=== PATIENT | male | born 1970 ===

== ENCOUNTER 2018-03-20 11:42 | Observation (INO) | payer BC, OTHER ==
[2018-03-20 11:51] VITALS: BMI 28.7
[2018-03-20] MEDS ORDERED: Iohexol 240 (50 ml) PO ONE (12:10)
[2018-03-20] MEDS ORDERED: Sodium Chloride 0.9% 1,000 ML IV STA (12:10)
--- NOTE | 2018-03-20 12:13 | ED PDOC ---
HPI: Abdomen Time Seen by Provider: 03/20/18 12:02 Chief Complaint (Nursing): Abdominal Pain Chief Complaint (Provider): abd pain History Per: Patient History/Exam Limitations: no limitations Onset/Duration Of Symptoms: Days () Current Symptoms Are (Timing): Still Present Additional Complaint(s): Abd pain after eating [employer]. RLQ. No nausea, vomit, diarrhea, weakness, headaches, dizziness, chest pain, dyspnea. No back pain, testicular pain. No dysuria. Past Medical History Reviewed: Nursing Documentation, Vital Signs Vital Signs: Last Vital Signs Temp 98.7 F 03/20/18 11:51 Pulse 91 H 03/20/18 11:51 Resp 17 03/20/18 11:51 BP 155/90 H 03/20/18 11:51 Pulse Ox 96 03/20/18 12:14 - Medical History PMH: No Chronic Diseases - Surgical History Surgical History: No Surg Hx - Family History Family History: States: Unknown Family Hx - Social History Alcohol: None Drugs: Denies - Home Medications Home Medications: Ambulatory Orders Medication Instructions Recorded No Known Home Med 03/20/18 - Allergies Allergies/Adverse Reactions: Allergies Allergy/AdvReac Type Severity Reaction Status Date / Time No Known Allergies Allergy Verified 03/20/18 12:06 Review of Systems ROS Statement: Except As Marked, All Systems Reviewed And Found Negative Gastrointestinal: Positive for: Abdominal Pain Physical Exam - Reviewed Nursing Documentation Reviewed: Yes Vital Signs Reviewed: Yes - Physical Exam Appears: Positive for: Non-toxic, No Acute Distress Head Exam: Positive for: ATRAUMATIC, NORMAL INSPECTION, NORMOCEPHALIC Skin: Positive for: Normal Color, Warm, DRY Eye Exam: Positive for: EOMI, Normal appearance, PERRL ENT: Positive for: Normal ENT Inspection Neck: Positive for: Normal, Painless ROM Cardiovascular/Chest: Positive for: Regular Rate, Rhythm Respiratory: Positive for: CNT, Normal Breath Sounds Gastrointestinal/Abdominal: Positive for: Soft, Tenderness (RLQ) Back: Positive for: Normal Inspection. Negative for: L CVA Tenderness, R CVA Tenderness Extremity: Positive for: Normal ROM. Negative for: Tenderness, Pedal Edema Neurologic/Psych: Positive for: Alert, Oriented - Laboratory Results Result Diagrams: 03/20/18 12:28 03/20/18 12:28 Interpretation Of Abn Labs: NO ACUTE - ECG O2 Sat by Pulse Oximetry: 96 Pulse Ox Interpretation: Normal - Progress ED Course And Treament: 1455: Stable. AAOx3. Pain controlled. Dr. Mart to take over care. Fu on ct. Disposition - Clinical Impression Clinical Impression: Abdominal pain - Patient ED Disposition Is Patient to be Admitted: Transfer of Care - Disposition Disposition: Transfer of Care Disposition Time: 14:54 Condition: FAIR Patient Signed Over To: Michael Mart
[2018-03-20] MEDS ORDERED: Iohexol 240 (50 ml) ONE (12:36)
[2018-03-20 12:47] LABS: BASO # 0.1 K/uL (0.0-0.2); BASO % 0.9 % (0.0-2.0); EOS # 0.1 K/uL (0.0-0.7); EOS % 1.1 % (0.0-4.0); HEMOGLOBIN 14.6 g/dL (12.0-18.0); LYMPH # 1.8 K/uL (1.0-4.3); LYMPH % 27.6 % (20.0-40.0); MEAN CELL VOLUME 89.1 fl (80.0-94.0); MEAN CORPUSCULAR HEMOGLOBIN 30.6 pg (27.0-31.0); MEAN CORPUSCULAR HGB CONC 34.3 g/dL (33.0-37.0); MEAN PLATELET VOLUME 9.4 fl (7.2-11.7); MONO # 0.6 K/uL (0.0-0.8); MONO % 8.3 % (0.0-10.0); NEUT # 4.2 K/uL (1.8-7.0); NEUT % 62.1 % (50.0-75.0); NRBC % 0.1 % (0.0-0.0); RBC 4.78 Mil/uL (4.40-5.90); RED CELL DISTRIBUTION WIDTH 12.8 % (11.5-14.5); WHITE BLOOD COUNT 6.7 K/uL (4.8-10.8)
[2018-03-20 13:10] LABS: ALB/GLOB RATIO 1.2 (1.0-2.1); ALBUMIN 4.2 g/dL (3.5-5.0); ALT/SGPT 42 U/L (21-72); AST/SGOT 40 U/L (17-59); BLOOD UREA NITROGEN 12 mg/dl (9-20); CALCIUM 9.5 mg/dL (8.4-10.2); GFR AFRICAN-AMERICAN > 60; GFR NON-AFRICAN AMERICAN > 60
[2018-03-20] MEDS ORDERED: Iohexol 300 100 ML IJ ONE (16:56)
--- NOTE | 2018-03-20 18:05 | ED PDOC ---
- Laboratory Results Result Diagrams: 03/20/18 12:28 03/20/18 12:28 - ECG O2 Sat by Pulse Oximetry: 96 Disposition - Clinical Impression Clinical Impression: Abdominal pain, Appendicitis - POA Present On Arrival: None - Disposition Disposition: Hospitalized as Observation Patient Disposition Time: 18:05 Condition: FAIR
--- NOTE | 2018-03-20 19:18 | CP.PCM.HP ---
History of Present Illness - History of Present Illness History of Present Illness: SURGERY NOTE FOR DR. ARAUZ 47M presents to hospital for abdominal pain. Patient states pain started 4/5 days ago and began in the right lower quadrant and it stays in the RLQ. Patient states pain started after eating fast food. He denies any nausea or vomiting, he denies any change in bowel movements. He states a couple days ago he felt subjective fevers, but not since. He denies chills. Last time he ate was this morning approx 12 hours ago. PMH: denies PSH: denies Social: denies tobacco abuse, admits to social alcohol use, denies illicit drugs Allergies: NKDA Present on Admission - Present on Admission Any Indicators Present on Admission: No Past Patient History - Past Social History Alcohol: None Drugs: Denies - PSYCHIATRIC Hx Substance Use: No - ANESTHESIA Hx Anesthesia: No Meds Allergies/Adverse Reactions: Allergies Allergy/AdvReac Type Severity Reaction Status Date / Time No Known Allergies Allergy Verified 03/20/18 12:06 Physical Exam - Constitutional Appears: Well, Non-toxic, No Acute Distress - Head Exam Head Exam: ATRAUMATIC - Eye Exam Eye Exam: EOMI, PERRL - Respiratory Exam Respiratory Exam: Clear to Auscultation Bilateral, NORMAL BREATHING PATTERN - Cardiovascular Exam Cardiovascular Exam: REGULAR RHYTHM, +S1, +S2 - GI/Abdominal Exam GI & Abdominal Exam: Soft, Tenderness (mild RLQ tenderness). absent: Distended , Firm, Guarding, Rebound, Rigid - Extremities Exam Extremities exam: Negative for: pedal edema, tenderness - Neurological Exam Neurological exam: Alert, Oriented x3 - Psychiatric Exam Psychiatric exam: Normal Affect, Normal Mood - Skin Skin Exam: Dry, Intact, Normal Color, Warm Results - Vital Signs Recent Vital Signs: Last Vital Signs Temp 98.3 F 03/20/18 18:47 Pulse 72 03/20/18 18:47 Resp 19 03/20/18 18:47 BP 130/73 03/20/18 18:47 Pulse Ox 97 03/20/18 18:47 - Labs Result Diagrams: 03/20/18 12:28 03/20/18 12:28 Labs: Laboratory Results - last 24 hr 03/20/18 03/20/18 12:28 12:28 WBC 6.7 RBC 4.78 Hgb 14.6 Hct 42.6 MCV 89.1 MCH 30.6 MCHC 34.3 RDW 12.8 Plt Count 235 MPV 9.4 Neut % (Auto) 62.1 Lymph % (Auto) 27.6 [place] % (Auto) 8.3 Eos % (Auto) 1.1 Baso % (Auto) 0.9 Neut # (Auto) 4.2 Lymph # (Auto) 1.8 [place] # (Auto) 0.6 Eos # (Auto) 0.1 Baso # (Auto) 0.1 Sodium 147 Potassium 4.0 Chloride 103 Carbon Dioxide 27 Anion Gap 21 H BUN 12 Creatinine 1.1 Est GFR ( Amer) > 60 Est GFR (Non-Af Amer) > 60 Random Glucose 102 Calcium 9.5 Total Bilirubin 0.4 AST 40 ALT 42 Alkaline Phosphatase 60 Total Protein 7.7 Albumin 4.2 Globulin 3.5 Albumin/Globulin Ratio 1.2 Assessment & Plan - Assessment and Plan (Free Text) Assessment: 47M with appendicit[address] CT: 10mm appendix with periappendiceal stranding contiguous with cecal tip, no perforation Plan: NPO, IVF Pain control Nausea vomiting Antibiotics AM labs SCD Further recs discuss with Dr. Boris Guillen, PGY2
[2018-03-20 19:27] LABS: INR 1.1 (0.9-1.2); PARTIAL THROMBOPLASTIN TIME 35.8 Seconds (25.6-37.1); PROTHROMBIN TIME 11.8 Seconds (9.8-13.1)
[2018-03-20] MEDS: Sodium Chloride 0.9% 1,000 ML IV SCH (20:08)
[2018-03-20] MEDS: Piperacillin/Tazobact 3.375 GM in Sodium Chloride 0.9% 100 ML IVPB SCH (22:37)
[2018-03-21] MEDS: Sodium Chloride 0.9% 1,000 ML IV SCH ×2 (02:10→04:01)
[2018-03-21] MEDS: Piperacillin/Tazobact 3.375 GM in Sodium Chloride 0.9% 100 ML IVPB SCH ×3 (03:57→21:36)
[2018-03-21 06:27] LABS: BASO # 0.1 K/uL (0.0-0.2); BASO % 1.3 % (0.0-2.0); EOS # 0.2 K/uL (0.0-0.7); EOS % 3.5 % (0.0-4.0); LYMPH # 1.9 K/uL (1.0-4.3); MEAN CELL VOLUME 90.3 fl (80.0-94.0); MEAN CORPUSCULAR HEMOGLOBIN 30.6 pg (27.0-31.0); MEAN CORPUSCULAR HGB CONC 33.9 g/dL (33.0-37.0); MEAN PLATELET VOLUME 9.5 fl (7.2-11.7); MONO # 0.5 K/uL (0.0-0.8); MONO % 8.7 % (0.0-10.0); NEUT # 3.1 K/uL (1.8-7.0); NEUT % 53.5 % (50.0-75.0); NRBC % 0.1 % (0.0-0.0); RBC 4.56 Mil/uL (4.40-5.90); RED CELL DISTRIBUTION WIDTH 12.8 % (11.5-14.5); WHITE BLOOD COUNT 5.8 K/uL (4.8-10.8)
[2018-03-21 06:47] LABS: ALB/GLOB RATIO 1.1 (1.0-2.1); ALBUMIN 3.5 g/dL (3.5-5.0); ALT/SGPT 36 U/L (21-72); AST/SGOT 28 U/L (17-59); BLOOD UREA NITROGEN 11 mg/dl (9-20); CALCIUM 8.6 mg/dL (8.4-10.2); GFR AFRICAN-AMERICAN > 60; GFR NON-AFRICAN AMERICAN > 60
--- NOTE | 2018-03-21 08:24 | CT ---
PROCEDURE: CT Abdomen and Pelvis without intravenous contrast HISTORY: Abdominal pain COMPARISON: None. TECHNIQUE: Multiple contiguous axial images were performed through the abdomen and pelvis with intravenous contrast. Subsequently, sagittal and coronal reformatted images were obtained. Radiation dose: Total exam DLP = 1292 mGy-cm. This CT exam was performed using one or more of the following dose reduction techniques: Automated exposure control, adjustment of the mA and/or kV according to patient size, and/or use of iterative reconstruction technique. FINDINGS: LOWER THORAX: 2 millimeter subpleural nodule within the medial aspect of the right middle lobe. LIVER: Mild hepatomegaly. GALLBLADDER AND BILE DUCTS: Unremarkable. PANCREAS: Unremarkable. No gross lesion or ductal dilatation. SPLEEN: Unremarkable. ADRENALS: Unremarkable. No mass. KIDNEYS AND URETERS: Low-attenuation lesion of the left kidney, too small to adequately characterize. VASCULATURE: Unremarkable. No aortic aneurysm. BOWEL: Unremarkable. No obstruction. No gross mural thickening. APPENDIX: Appendix is dilated measuring up to 10 millimeters, isodense, with mild periappendiceal fat stranding and contiguous inflammation of the cecal tip concerning for acute appendicitis without signs of perforation. Appendix is best seen on axial image 65 of series 6 and coronal image 50. PERITONEUM: Unremarkable. No free fluid. No free air. LYMPH NODES: Unremarkable. No enlarged lymph nodes. BLADDER: Unremarkable. REPRODUCTIVE: Unremarkable. BONES: Posterior disc osteophyte complex at the L5-S1 level. OTHER FINDINGS: None. IMPRESSION: Appendix is dilated measuring up to 10 millimeters, isodense, and with mild periappendiceal fat stranding and contiguous inflammation of the cecal tip suspicious for acute appendicitis without signs of perforation. Additional findings as above. These findings were preliminarily reported at 5:59 p.m. on 03/20/[address] Holden Faulkner from [employer].
[2018-03-21] MEDS ORDERED: Succinylcholine 200 mg/10 ml Inj IV ONE (13:20)
[2018-03-21] MEDS ORDERED: Propofol 10 mg/ml Inj (20 ML) ONE ×2 (13:20→15:08)
[2018-03-21] MEDS ORDERED: Vecuronium 10 mg Inj ONE (13:22)
[2018-03-21] MEDS ORDERED: Lidocaine 4% (Laryng-O-Jet) Kit MM ONE (13:22)
[2018-03-21] MEDS ORDERED: Phenylephrine 10 mg/ml Inj ONE (13:22)
[2018-03-21] MEDS ORDERED: Bupivacaine 0.5% Inj(30mL) ONE (13:28)
[2018-03-21] MEDS ORDERED: Lidocaine 2% w Epi 1:100,000 Inj IJ ONE (13:28)
[2018-03-21] MEDS ORDERED: Lactated Ringer's 1,000 ML IV ONE ×3 (14:00→16:41)
[2018-03-21] MEDS ORDERED: Midazolam 2 MG/2 ML VIAL ONE (14:07)
[2018-03-21] MEDS ORDERED: Dexamethasone 4 mg/1 ml ONE (14:21)
[2018-03-21] MEDS ORDERED: Neostigmine 1:1000 (1 mg/ml) Inj ONE (14:29)
--- NOTE | 2018-03-21 15:29 | PCM.SURG1 ---
Surgeon's Initial Post Op Note - Surgeon's Notes Surgeon: Dr. Escalante Graduate Intern: Dr. Bass PGY2, Dr. [place] PGY1 Type of Anesthesia: General Endo Pre-Operative Diagnosis: Acute appendicitis Operative Findings: acute appendicitis Post-Operative Diagnosis: same Operation Performed: appendix Specimen/Specimens Removed: appendix Estimated Blood Loss: EBL {In ML}: 5 Blood Products Given: N/A Drains Used: No Drains Post-Op Condition: Good Date of Surgery/Procedure: 03/21/18 Time of Surgery/Procedure: 14:30
[2018-03-21] MEDS ORDERED: HYDROmorphone 0.5 mg/0.5 ml ISec IVP PRN (15:33)
[2018-03-22] MEDS: Lactated Ringer's 1,000 ML IV SCH ×2 (02:05→03:33)
[2018-03-22] MEDS: Piperacillin/Tazobact 3.375 GM in Sodium Chloride 0.9% 100 ML IVPB SCH (03:32)
[2018-03-22] MEDS ORDERED: Oxycodone/Acetaminophen 5/325 mg Tab PO PRN (07:42)
[2018-03-22 07:43] VITALS: BP 121/79; PULSE 64; RESP 18; TEMP 97.9; O2SAT 98
--- NOTE | 2018-03-22 07:56 | CP.PCM.DIS ---
Provider - Provider Date of Admission: 03/20/18 19:07 Attending physician: Michael Escalante MD Time Spent in preparation of Discharge (in minutes): 20 Hospital Course - Lab Results Lab Results: Most Recent Lab Values WBC 5.8 K/uL (4.8-10.8) 03/21/18 05:45 RBC 4.56 Mil/uL (4.40-5.90) 03/21/18 05:45 Hgb 14.0 g/dL (12.0-18.0) 03/21/18 05:45 Hct 41.1 % (35.0-51.0) 03/21/18 05:45 MCV 90.3 fl (80.0-94.0) 03/21/18 05:45 MCH 30.6 pg (27.0-31.0) 03/21/18 05:45 MCHC 33.9 g/dL (33.0-37.0) 03/21/18 05:45 RDW 12.8 % (11.5-14.5) 03/21/18 05:45 Plt Count 224 K/uL (130-400) 03/21/18 05:45 MPV 9.5 fl (7.2-11.7) 03/21/18 05:45 Neut % (Auto) 53.5 % (50.0-75.0) 03/21/18 05:45 Lymph % (Auto) 33.0 % (20.0-40.0) 03/21/18 05:45 [place] % (Auto) 8.7 % (0.0-10.0) 03/21/18 05:45 Eos % (Auto) 3.5 % (0.0-4.0) 03/21/18 05:45 Baso % (Auto) 1.3 % (0.0-2.0) 03/21/18 05:45 Neut # (Auto) 3.1 K/uL (1.8-7.0) 03/21/18 05:45 Lymph # (Auto) 1.9 K/uL (1.0-4.3) 03/21/18 05:45 [place] # (Auto) 0.5 K/uL (0.0-0.8) 03/21/18 05:45 Eos # (Auto) 0.2 K/uL (0.0-0.7) 03/21/18 05:45 Baso # (Auto) 0.1 K/uL (0.0-0.2) 03/21/18 05:45 PT 11.8 Seconds (9.8-13.1) 03/20/18 18:55 INR 1.1 (0.9-1.2) 03/20/18 18:55 APTT 35.8 Seconds (25.6-37.1) 03/20/18 18:55 Sodium 145 mmol/l (132-148) 03/21/18 05:45 Potassium 4.0 MMOL/L (3.6-5.0) 03/21/18 05:45 Chloride 105 mmol/L (98-107) 03/21/18 05:45 Carbon Dioxide 25 mmol/L (22-30) 03/21/18 05:45 Anion Gap 19 (10-20) 03/21/18 05:45 BUN 11 mg/dl (9-20) 03/21/18 05:45 Creatinine 1.1 mg/dl (0.8-1.5) 03/21/18 05:45 Est GFR ( Amer) > 60 03/21/18 05:45 Est GFR (Non-Af Amer) > 60 03/21/18 05:45 Random Glucose 107 mg/dL (75-110) 03/21/18 05:45 Calcium 8.6 mg/dL (8.4-10.2) 03/21/18 05:45 Total Bilirubin 0.8 mg/dl (0.2-1.3) 03/21/18 05:45 AST 28 U/L (17-59) 03/21/18 05:45 ALT 36 U/L (21-72) 03/21/18 05:45 Alkaline Phosphatase 57 U/L (38-126) 03/21/18 05:45 Total Protein 6.7 G/DL (6.3-8.2) 03/21/18 05:45 Albumin 3.5 g/dL (3.5-5.0) 03/21/18 05:45 Globulin 3.2 gm/dL (2.2-3.9) 03/21/18 05:45 Albumin/Globulin Ratio 1.1 (1.0-2.1) 03/21/18 05:45 - Hospital Course Hospital Course: 03/20: 47M presents to hospital for abdominal pain. Patient states pain started 4 /5 days ago and began in the right lower quadrant and it stays in the RLQ. Patient states pain started after eating fast food. He denies any nausea or vomiting, he denies any change in bowel movements. He states a couple days ago he felt subjective fevers, but not since. He denies chills. Last time he ate was this morning approx 12 hours ago. 03/21: Patient underwent laparoscopic appendectomy. Tolerated procedure well with no intraoperative complications. 03/22: Patient is ambulating and tolerating diet. Denies fever/chills. Reports he no longer has abdominal pain. Discharge Exam - Head Exam Head Exam: ATRAUMATIC - Eye Exam Eye Exam: EOMI, Normal appearance - Respiratory Exam Respiratory Exam: NORMAL BREATHING PATTERN - Cardiovascular Exam Cardiovascular Exam: +S1, +S2 - GI/Abdominal Exam GI & Abdominal Exam: Soft. absent: Distended, Firm, Guarding, Hernia, Rebound, Rigid, Tenderness - Neurological Exam Neurological exam: Alert, Oriented x3 - Skin Skin Exam: Dry, Intact, Normal Color, Warm Discharge Plan - Follow Up Plan Condition: FAIR Disposition: HOME/ ROUTINE Patient education suggested?: Yes Instructions: Appendicitis, Adult (DC), Appendectomy, Laparoscopic Surgery (DC) , Acute Abdominal Pain (DC), Acute Abdominal Pain (GEN) Additional Instructions: follow up with Dr. Escalante in 7-10 days No heavy lifting OK to shower Do not submerge under water for first two weeks (i.e. bath, swimming pool, beach , etc) Referrals: [facility] [Outside] Michael Escalante MD [Staff Provider] -
--- NOTE | 2018-04-01 08:40 | OP ---
PROCEDURE DATE: 03/21/2018 PREOPERATIVE DIAGNOSIS: Acute appendicitis. POSTOPERATIVE DIAGNOSIS: Acute appendicitis. PROCEDURE: Laparoscopic appendectomy. SURGEON: Michael Escalante MD ACCOUNTS CLERK: TYPE OF ANESTHESIA: General endotracheal. ESTIMATED BLOOD LOSS: 10 mL. IV FLUIDS: 1 L of Ringers lactate. SPECIMEN: Appendix to pathology. COMPLICATIONS: None. DRAINS: None. IMPLANTS: None. DISPOSITION: Stable and extubated to recovery room. CLINICAL INFORMATION: Mr. Malave is a 47-year-old male who has experiencing right lower quadrant epigastric pain, radiating to the lower back accompanied by nausea and vomiting for the last 48 hours. became more severe and he developed also low-grade fever and chest pain he presented to the [facility] Emergency Room. On examination, the patient had rebound and guarding in the right lower quadrant as well as leukocytosis. The CAT scan indicates that the patient had acute appendicitis and based on these findings, the patient was taken to the OR emergently for a laparoscopic appendectomy. INTRAOPERATIVE FINDINGS: The patient had an enlarged inflamed appendix and cloudy fluid in the right pericolic gutter and right pelvic area as well as thickened mesoappendix. DESCRIPTION OF PROCEDURE: The patient was brought to the operating room and placed on the operating room table in supine position. general endotracheal anesthesia. Venodyne boots were placed in both legs and were given. The entire abdomen was prepped and draped in the usual sterile fashion. The infraumbilical area was infiltrated with local anesthetic using 0.5% Marcaine and 1% lidocaine with epinephrine and it was incised in vertical fashion using a #15 blade. The incision was brought down subcutaneous tissue using Bovie electrocautery and linea alba was identified and incised and the peritoneal cavity was accessed. An 0 Vicryl stitch UR-6 needle was placed inside fascia. A [place] trocar was inserted under direct visualization and the obturator was removed. The port was secured through the anchoring 0 Vicryl sutures and then port was connected with CO2 tank, generating pneumoperitoneum with 50 mmHg, the patient's position was changed Trendelenburg with left side down exposing the right lower quadrant. A 10 mm 30-degree laparoscope video camera was inserted and the abdomen was inspected. The appendix was partly concealed by the cecum and appeared to be inflamed and enlarged with thickened mesoappendix and cloudy fluid in the right pericolic gutter and the right pelvic area. No other significant pathologies are identified. Two 5-mm ports were inserted in the lower abdomen, suprapubic and the left lower quadrant area under direct visualization. After infiltrating the skin with a same local anesthetic and incising with 15 blade. Through the 5 mm ports, an endograsper and 5 mm LigaSure were inserted in the appendix was in the blunt and sharp fashion and also partly retrocecal and dissection was rather tedious, but was accomplished without any collateral damage. Upon completing the dissection, the entire length of the appendix and mesoappendix was exposed and mesoappendix was secured in a sequential fashion using [address] the way to the base of the appendix. An Endo ANNMARIE 45 blue stapler was fired across the base of the appendix and specimen was placed in the endo bag to pathology for permanent section. A warm irrigation was used to perform an irrigation to the pelvis to the abdomen and irrigated fluid was aspirated. There was no evidence of clinical mesoappendix or sulcus discharge from the appendiceal stump. No other pathologies were identified. Infraumbilical port was removed and the fascia was closed with interrupted 0 Vicryl stitches. The integrity of the fascial closure was checked for inserting 5-mm 30-degree laparoscopic video camera through the left lower quadrant. There was no evidence of bleeding and also there was no evidence of bowel or omental entrapment. The remaining two 5-mm ports were removed under direct laparoscopic visualization and there was no evidence of bleeding from the port sites. Skin incision was closed with 4-0 continuous subcuticular Monocryl stitch and Dermabond was applied. At the end of the surgery, the counts of instruments, gauze, and needles were correct x2. The patient tolerated the surgery well and was transferred in stable condition to recovery room. Michael Escalante MD
== END 2018-03-22 12:53 | disposition home or self-care (01) ==
LOC: H.ER 11:42 → H.ERHOLD 19:07 → H.MEDSURG1 20:50
PROVIDERS: ADMIT Specialist; ATTEND Specialist
DX: K35.80 Unspecified acute appendicitis (principal)
CPT/HCPCS: 36415; 44970; 74177; 80053; 85025; 85610; 85730; 88304; 96361; 96365; 96367; 96375; 99285; G0378; J0330; J1100; J1885; J2001; J2250; J2370; J2405; J2543; J2704; J2710; J2765; J3010; J7030; J7040; J7120; Q9966; Q9967